=== PATIENT | female | born 1990 | race African-American/Black ===

== ENCOUNTER 2025-05-11 02:46 | Emergency (ER) | payer OTHER ==
[~2025-05-11] VITALS: Ht 154.9 cm; Wt 74.3 kg
[2025-05-11 02:53] VITALS: O2SAT 100
[2025-05-11] MEDS: KETOROLAC 15MG/ML VIAL IM ONE (04:14)
[2025-05-11] MEDS ORDERED: NAPR-1176 MT (04:29)
[2025-05-11] MEDS ORDERED: AMOX1TAB16 MT (04:29)
[2025-05-11 04:42] VITALS: BP 136/71; PULSE 71; RESP 14; TEMP 36.9; O2SAT 100
== END 2025-05-11 04:45 | disposition home or self-care (01) ==
LOC: ER 03:16
DX: K04.7 Periapical abscess without sinus (principal); J45.909 Unspecified asthma, uncomplicated; Z90.49 Acquired absence of other specified parts of digestive tract
CPT/HCPCS: 99283; 81025; 96372; J1885

== ENCOUNTER 2025-06-18 02:55 | Emergency (ER) | payer OTHER ==
[~2025-06-18] VITALS: Ht 154.9 cm; Wt 77.0 kg
[~2025-06-18 02:55] MED LIST: AMOX1TAB16 MT; NAPR-1176 MT
[2025-06-18 03:10] VITALS: TEMP 36.7; O2SAT 100
[2025-06-18] MEDS: KETOROLAC 30MG/ML VIAL IM ONE (05:03)
[2025-06-18] MEDS ORDERED: IBUP-1455 MT (05:04)
[2025-06-18 05:19] VITALS: BP 124/68; PULSE 77; RESP 16; O2SAT 100
== END 2025-06-18 05:20 | disposition home or self-care (01) ==
LOC: ER 02:55
DX: R51.9 Headache, unspecified (principal); D64.9 Anemia, unspecified; J45.909 Unspecified asthma, uncomplicated; Z90.49 Acquired absence of other specified parts of digestive tract
CPT/HCPCS: 96372; 99283; J1885; Z7610

== ENCOUNTER 2025-06-19 22:04 | Emergency (ER) | payer OTHER ==
[~2025-06-19] VITALS: Ht 154.9 cm; Wt 77.0 kg
[~2025-06-19 22:04] MED LIST changes: +IBUP-1455 MT
[2025-06-19 22:09] VITALS: TEMP 36.7; O2SAT 100
[2025-06-19 22:52] LABS: BASOPHILS % 0.9 % (0.0-2.0); EOSINOPHILS % 1.0 % (0.0-5.0); HEMATOCRIT. 26.4 % (36.0-48.0); HEMOGLOBIN. 7.8 g/dL (12.0-16.0); LYMPHOCYTES % 20.7 % (20.0-50.0); MEAN PLATELET VOLUME 8.3 fl (7.4-10.4); MONOCYTES % 8.2 % (2.0-8.0); NEUTROPHILS % 69.2 % (40.0-76.0); PLATELET 469 x1000/uL (130-400); RED BLOOD CELL COUNT 4.07 mill/uL (4.2-5.4); RED CELL DISTRIBUTION WIDTH 25.5 % (11.6-14.6)
[2025-06-19 22:56] LABS: ADD RBC MORPHOLOGY YES
[2025-06-19 23:05] LABS: CREATININE 0.8 mg/dL (0.6-1.0); UREA NITROGEN BLOOD 6 mg/dL (9-23)
[2025-06-19 23:07] LABS: TROPONIN I HIGH SENSITIVITY < 4 ng/L (3.0-34)
[2025-06-19 23:14] LABS: PLATELET ESTIMATE INCREASED
[2025-06-20] MEDS: ACETAMINOPHEN WITH CODEINE 300/30MG TABLET PO ONE (00:30)
[2025-06-20 01:18] LABS: HCG SCREEN NEGATIVE
[2025-06-20] MEDS: KETOROLAC 30MG/ML VIAL IM ONE (03:25)
[2025-06-20 05:31] VITALS: BP 128/74; PULSE 62; RESP 18; O2SAT 100
[2025-06-20] MEDS ORDERED: IOHEXOL-350 100 ML BOTTLE ONE (05:40)
== END 2025-06-20 05:32 | disposition home or self-care (01) ==
LOC: ER 22:29
DX: D50.9 Iron deficiency anemia, unspecified (principal); R51.9 Headache, unspecified; D75.839 Thrombocytosis, unspecified; J45.909 Unspecified asthma, uncomplicated; Z79.1 Long term (current) use of non-steroidal anti-inflammatories (NSAID); Z90.49 Acquired absence of other specified parts of digestive tract
CPT/HCPCS: 99285; 71045; 80048; 84703; 85025; 85379; 84484; 36415; 93005; 96372; 71275; 70486; J1885; Q9967